=== PATIENT | female | born 1960 | race Caucasian/White ===

== ENCOUNTER 2017-04-24 17:25 | Emergency (ER) | payer OTHER ==
[2017-04-24 17:31] VITALS: TEMP 98.4; BMI 33.2
--- NOTE | 2017-04-24 20:35 | PDOC ---
History of Present Illness - General History Source: Patient Exam Limitations: No Limitations - History of Present Illness Initial Comments: The patient is a 56 yo F with a past medical history significant for COPD, HTN, HLD, cardiac catheterization, intracranial bleeds in the 90s, 3 herniated discs , spinal stenosis, carpal tunnel and ETOH intox (Sep 2016) presents with two days of fatigue. Patient states she was unable to get out of bed yesterday. Patient endorses associated pedal edema and occasional palpitations. Patient denies fever, chills, nausea, vomiting and diarrhea. Patient denies dysuria and hematuria. Patient denies chest pain. Patient notes she began taking Pantoprazole recently and is unsure whether this caused her symptoms. Patient also reports a recent endoscopy that showed an abnormal pH finding. Patient also notes her hoarse voice is chornic. Patient had a negative stress test in 2013. PCP: Dr. Grazyna Sanches Hx: Smoker (former 3 ppd now 1ppd since she was 16 yo), social ETOH use <Shamika Stephens - Last Filed: 04/24/17 21:40> <Kacie Lutz - Last Filed: 04/24/17 23:21> - General Chief Complaint: Weakness Stated Complaint: WEAKNESS Time Seen by Provider: 04/24/17 17:43 Past History <Shamika Stephens - Last Filed: 04/24/17 21:40> - Past Medical History Anemia: No Asthma: Yes (CHRONIC BRONCHITIS/ASTHMA) Cancer: No Cardiac Disorders: Yes (NEG STRESS) CVA: Yes (1998) COPD: Yes CHF: No Dementia: No Diabetes: No GI Disorders: No Disorders: No HTN: Yes Hypercholesterolemia: Yes Liver Disease: No Psychiatric Problems: Yes (ANXIETY) Seizures: No Thyroid Disease: No - Surgical History Abdominal Surgery: Yes Appendectomy: No Cardiac Surgery: Yes (CARD CATH) Cholecystectomy: No Lung Surgery: No Neurologic Surgery: No Orthopedic Surgery: Yes (LEFT CARPAL TUNNEL ) - Immunization History Immunization Up to Date: Yes - Psycho/Social/Smoking Cessation Hx Anxiety: Yes Suicidal Ideation: No Smoking History: Current every day smoker Have you smoked in the past 12 months: Yes Number of Cigarettes Smoked Daily: 10 Information on smoking cessation initiated: Yes 'Breaking Loose' booklet given: 04/24/17 Hx Alcohol Use: No Drug/Substance Use Hx: No Substance Use Type: None <Priyank Lutza Pao - Last Filed: 04/24/17 23:21> - Past Medical History Allergies/Adverse Reactions: Allergies Allergy/AdvReac Type Severity Reaction Status Date / Time Cephalosporins Allergy Severe Hives Verified 04/24/17 18:11 naproxen [From Naprosyn] Allergy Severe FAINTED Verified 04/24/17 18:11 Penicillins Allergy Severe Hives Verified 04/24/17 18:11 Home Medications: Ambulatory Orders Diltiazem Cd [Cardizem Cd] 240 mg PO DAILY 08/23/12 Clonidine HCl [Catapres] 0.2 mg PO BID 10/03/16 Gabapentin [Neurontin -] 300 mg PO TID 10/03/16 Hydrochlorothiazide [Hctz -] 25 mg PO DAILY 10/03/16 Meloxicam [Mobic (Nf) -] 15 mg PO DAILY 10/03/16 Mometasone Furoate [Asmanex 220Mcg -] 2 inh IH DAILY 10/03/16 Montelukast Na [Singulair -] 10 mg PO HS 10/03/16 Paroxetine HCl [Paxil] 40 mg PO DAILY 10/03/16 Tiotropium [place] [Spiriva] 1 inh IH DAILY 10/03/16 Valsartan 320 mg PO DAILY 10/03/16 Atorvastatin Ca [Lipitor] 40 mg PO HS 04/24/17 Fluticasone Prop 0.05% Nasal [Flonase -] 1 spray AU DAILY 04/24/17 Mometasone/Formoterol [Dulera 100 Mcg/5 Mcg Inhaler] 2 inh IH BID 04/24/17 Pantoprazole Sodium [Protonix] 40 PO DAILY 04/24/17 Review of Systems - Review of Systems Able to Perform ROS?: Yes Comments:: CONSTITUTIONAL: +Fatigue Absent: fever, chills, diaphoresis, generalized weakness, loss of appetite HEENT: Absent: rhinorrhea, nasal congestion, throat pain, throat swelling, difficulty swallowing, mouth swelling, ear pain, eye pain, visual Changes CARDIOVASCULAR: +occassional palpitations Absent: chest pain, syncope, irregular heart rate, lightheadedness, peripheral edema RESPIRATORY: Absent: cough, shortness of breath, dyspnea with exertion, orthopnea, wheezing, stridor, hemoptysis GASTROINTESTINAL: Absent: abdominal pain, abdominal distension, nausea, vomiting, diarrhea, constipation, melena, hematochezia GENITOURINARY: Absent: dysuria, frequency, urgency, hesitancy, hematuria, flank pain, genital pain MUSCULOSKELETAL: Absent: myalgia, arthralgia, joint swelling SKIN: Absent: rash, itching, pallor NEUROLOGIC: Absent: headache, focal weakness or paresthesia, dizziness, unsteady gait, seizure, mental status changes, bladder or bowel incontinence PSYCHIATRIC: Absent: anxiety, depression, suicidal or homicidal ideation, hallucinations 04/24/17 21:40 <Shamika Stephens - Last Filed: 04/24/17 21:40> *Physical Exam - Vital Signs Last Vital Signs Temp Pulse Resp BP Pulse Ox 98.4 F 84 20 138/75 94 L 04/24/17 17:27 04/24/17 20:44 04/24/17 20:44 04/24/17 20:44 04/24/17 20:44 - Physical Exam Comments: GENERAL: Well developed, well nourished. Awake and alert. No acute distress. HEENT: laryngitis. Normocephalic, atraumatic. PERRLA, EOMI. No conjunctival pallor. Sclera are non-icteric. Moist mucous membranes. Oropharynx is clear. NECK: Supple. Full ROM. No JVD. Carotid pulses 2+ and symmetric, without bruits. No thyromegaly. No lymphadenopathy. CARDIOVASCULAR: Regular rate and rhythm. No murmurs, rubs, or gallops. Distal pulses are 2+ and symmetric. PULMONARY: No evidence of respiratory distress. Lungs clear to auscultation bilaterally. No wheezing, rales or rhonchi. ABDOMINAL: Obese. Soft. Non-tender. Non-distended. No rebound or guarding. No organomegaly. Normoactive bowel sounds. MUSCULOSKELETAL Normal range of motion at all joints. No bony deformities or tenderness. No CVA tenderness. EXTREMITIES: No cyanosis. No clubbing. No edema. No calf tenderness. SKIN: Warm and dry. Normal capillary refill. No rashes. No jaundice. NEUROLOGICAL: No gross focal neurological deficits. PSYCHIATRIC: Cooperative. Good eye contact. Appropriate mood and affect <Shamika Stephens - Last Filed: 04/24/17 21:40> - Vital Signs Last Vital Signs Temp Pulse Resp BP Pulse Ox 98.4 F 100 H 18 120/80 94 L 04/24/17 17:27 04/24/17 17:27 04/24/17 17:27 04/24/17 17:27 04/24/17 17:27 <BolivarKacie Pao - Last Filed: 04/24/17 23:21> Heart Score/ECG Review - [place] Comment: ECG: NSR @ 85 bpm. Possible left atrial enlargement. Rightward axis. Borderline ECG. <KevinodalysezShamika - Last Filed: 04/24/17 21:40> ED Treatment Course - LABORATORY CBC & Chemistry Diagram: 04/24/17 20:30 04/24/17 20:30 - ADDITIONAL ORDERS Additional order review: Laboratory Results 04/24/17 20:30 INR 1.02 04/24/17 20:30 RBC 3.93 MCV 94.0 MCHC 33.0 RDW 13.4 MPV 10.9 D Neutrophils % 67.2 Lymphocytes % 26.5 Monocytes % 4.0 Eosinophils % 1.4 Basophils % 0.9 <KevinodalysezShamika - Last Filed: 04/24/17 21:40> - LABORATORY CBC & Chemistry Diagram: 04/24/17 20:30 04/24/17 20:30 - RADIOLOGY Radiology Studies Ordered: Category Date Time Status HEAD CT WITHOUT CONTRAST [CT] Stat CT Scan 04/24/17 20:25 Ordered CHEST X-RAY PORTABLE* [RAD] Stat Radiology 04/24/17 20:24 Ordered <BolivarKacie Pao - Last Filed: 04/24/17 23:21> Medical Decision Making - Medical Decision Making 04/24/17 22:29 56-year-old female presented because of complaint of several days of malaise, increased fatigue -Does not have chest pain, abdominal pain, shortness of breath, fever, chills, nausea, vomiting She does admit to a chronic cough. She's been smoking cigarettes since the age of 16 between 1 and 3 packs per day She is being followed by ear, nose and throat for her chronic cough. She has had a recent scope done by her ENT She does not have a fever. EKG is normal sinus rhythm and no acute signs of ischemia She does not have a leukocytosis. She is not anemic Cardiac enzymes are negative Liver function to her electrolytes are normal -only abnormality was bun/cr 35/1.3 slightly increased and she received IVF and was discharged home <Kacie Lutz - Last Filed: 04/24/17 23:21> *DC/Admit/Observation/Transfer - Attestations Scribe Attestion: Documentation prepared by Shamika Stephens, acting as manager medical affairs for Kacie Lutz MD/DO. <Shamika Stephens - Last Filed: 04/24/17 21:40> <Kacie Lutz - Last Filed: 04/24/17 23:21> Diagnosis at time of Disposition: Malaise and fatigue, Chronic cough - Discharge Dispostion Disposition: HOME Condition at time of disposition: Stable - Referrals Referrals: Mao Wise MD [Primary Care Provider] - - Patient Instructions Printed Discharge Instructions: DI for Fatigue, DI for Laryngitis Additional Instructions: PLEASE FOLLOW UP WITH YOUR PRIMARY PHYSICIAN AND ENT SPECIALIST
[2017-04-24 20:45] VITALS: BP 138/75; PULSE 84
[2017-04-24 20:49] LABS: BASOPHIL 0.9 % (0-2.0); EOSINOPHIL 1.4 % (0-4.5); MEAN PLT VOLUME 10.9 fl (7.5-11.1); NEUTROPHILS 67.2 % (42.8-82.8); PLATELET COUNT 177 K/MM3 (134-434); RDW 13.4 % (11.6-15.6); WHITE BLOOD COUNT 9.3 K/mm3 (4.0-10.0)
[2017-04-24 21:03] LABS: INR 1.02 (0.82-1.09); PROTHROMBIN TIME (PATIENT) 11.2 SEC (9.98-11.88)
[2017-04-24 21:05] LABS: URINE APPEARANCE CLEAR; URINE BILIRUBIN NEGATIVE (NEGATIVE); URINE BLOOD NEGATIVE (NEGATIVE); URINE COLOR LTYELLOW; URINE GLUCOSE (UA) NEGATIVE (NEGATIVE); URINE KETONE NEGATIVE (NEGATIVE); URINE LEUK ESTERASE NEGATIVE (NEGATIVE); URINE NITRITE NEGATIVE (NEGATIVE); URINE PROTEIN NEGATIVE (NEGATIVE); URINE UROBILINOGEN NEGATIVE E.U./dl (0.2-1.0)
[2017-04-24 21:14] LABS: ALBUMIN 3.3 g/dl (3.4-5.0); ANION GAP 10 (8-16); CO2 26 mmol/L (21-32); CREATININE 1.3 mg/dL (0.55-1.02); GLUCOSE,RANDOM 142 mg/dL (74-106); SGPT/ALT 19 U/L (12-78)
[2017-04-24 21:19] LABS: ALK PHOS 169 U/L (45-117); BILIRUBIN,TOTAL 0.3 mg/dL (0.2-1.0); TOT PROT 6.6 g/dl (6.4-8.2); TROPONIN I < 0.02 ng/ml (0.00-0.05)
[2017-04-24 21:33] LABS: SGOT/AST 20 U/L (15-37)
[2017-04-24] MEDS ORDERED: SODIUM CHLORIDE 1,000 ML IV STA (21:38)
--- NOTE | 2017-04-26 11:22 | EKG ---
Test Reason : Blood Pressure : / mmHG Vent. Rate : 085 BPM Atrial Rate : 085 BPM P-R Int : 180 ms QRS Dur : 092 ms QT Int : 350 ms P-R-T Axes : 051 103 020 degrees QTc Int : 416 ms NORMAL SINUS RHYTHM POSSIBLE LEFT ATRIAL ENLARGEMENT RIGHTWARD AXIS BORDERLINE ECG WHEN COMPARED WITH ECG OF 03-OCT-2016 22:14, NONSPECIFIC T WAVE ABNORMALITY NO LONGER EVIDENT IN LATERAL LEADS Confirmed by VIRGEN BENSON, DENYS ([id number]) on 04/26/2017 11:22:35 AM Referred By: Confirmed By:DENYS NEW MD
== END 2017-04-24 23:35 | disposition home or self-care (01) ==
LOC: JER 17:25
PROC: 3E0337Z Introduction of Electrolytic and Water Balance Substance into Peripheral Vein, Percutaneous Approach (ICD-10-PCS; principal; 2017-04-24)
DX: R53.81 Other malaise (principal); R05 Cough; I25.10 Atherosclerotic heart disease of native coronary artery without angina pectoris; Z98.61 Coronary angioplasty status; I10 Essential (primary) hypertension; J44.9 Chronic obstructive pulmonary disease, unspecified; E78.00 Pure hypercholesterolemia, unspecified
CPT/HCPCS: 36415; 70450-TC; 71010-TC; 80053; 81003; 82550; 84484; 85025; 85610; 93005; 93010; 99284-25

== ENCOUNTER → 2017-05-31 | Emergency (ER) | payer OTHER ==
[~2017-05-31] MED LIST: AMIODARONE HCL 150 MG/3 ML VIAL ONE
--- NOTE | 2017-05-31 05:32 | PDOC ---
History of Present Illness - General History Source: EMS <Swapnil Echeverria - Last Filed: 05/31/17 05:52> - General History Source: Patient Exam Limitations: No Limitations - History of Present Illness Initial Comments: 05/31/17 05:56 The patient is a 56 year old female who presents to the ED s/p cardiac arrest. As per EMS the patient had been complaining of SOB for 1 day. As per EMS the boyfriend called the ambulance due to respiratory distress and after the patient collapsed, while the patient was being transported, she coded and was intubated in the field. As per EMS 1 round of epinephrine, 1 round of amiodarone , 1 round of calcium and 1 round of bicarb administered en route. Patient did not regain spontaneous vital signs and was transported to the hospital. Patient had 1 shockable rhythm in the field. As per EMS active CPR was being done for 20 minutes. At presentation in the ED active CPR was in progress. Patient was given 1 round of epinephrine and finger stick was done resulting in 228 mg/dL. Patient did not regain spontaneous vital signs confirmed by bedside sonogram. PMH: COPD, HTN, HLD, anxiety, asthma, cardiac catheterization, intracranial bleeds in the 90s, 3 herniated discs, spinal stenosis, carpal tunnel and ETOH abuse (Sep 2016) <Daisy Larry - Last Filed: 05/31/17 06:00> - General Stated Complaint: CARDIAC ARREST Time Seen by Provider: 05/31/17 05:32 Past History - Past Medical History Anemia: No Asthma: Yes (CHRONIC BRONCHITIS/ASTHMA) Cancer: No Cardiac Disorders: Yes (NEG STRESS) CVA: Yes (1998) COPD: Yes CHF: No Dementia: No Diabetes: No GI Disorders: No Disorders: No HTN: Yes Hypercholesterolemia: Yes Liver Disease: No Psychiatric Problems: Yes (ANXIETY) Seizures: No Thyroid Disease: No - Surgical History Abdominal Surgery: Yes Appendectomy: No Cardiac Surgery: Yes (CARD CATH) Cholecystectomy: No Lung Surgery: No Neurologic Surgery: No Orthopedic Surgery: Yes (LEFT CARPAL TUNNEL ) - Immunization History Immunization Up to Date: Yes - Psycho/Social/Smoking Cessation Hx Anxiety: Yes Suicidal Ideation: No Smoking History: Current every day smoker Have you smoked in the past 12 months: Yes Number of Cigarettes Smoked Daily: 10 'Breaking Loose' booklet given: 04/24/17 Hx Alcohol Use: No Drug/Substance Use Hx: No Substance Use Type: None <Swapnil Echeverria - Last Filed: 05/31/17 05:52> <Daisy Larry - Last Filed: 05/31/17 06:00> - Past Medical History Allergies/Adverse Reactions: Allergies Allergy/AdvReac Type Severity Reaction Status Date / Time Cephalosporins Allergy Severe Hives Verified 05/31/17 05:35 naproxen [From Naprosyn] Allergy Severe FAINTED Verified 05/31/17 05:35 Penicillins Allergy Severe Hives Verified 05/31/17 05:35 Home Medications: Ambulatory Orders Diltiazem Cd [Cardizem Cd] 240 mg PO DAILY 08/23/12 Clonidine HCl [Catapres] 0.2 mg PO BID 10/03/16 Gabapentin [Neurontin -] 300 mg PO TID 10/03/16 Hydrochlorothiazide [Hctz -] 25 mg PO DAILY 10/03/16 Meloxicam [Mobic (Nf) -] 15 mg PO DAILY 10/03/16 Mometasone Furoate [Asmanex 220Mcg -] 2 inh IH DAILY 10/03/16 Montelukast Na [Singulair -] 10 mg PO HS 10/03/16 Paroxetine HCl [Paxil] 40 mg PO DAILY 10/03/16 Tiotropium [place] [Spiriva] 1 inh IH DAILY 10/03/16 Valsartan 320 mg PO DAILY 10/03/16 Atorvastatin Ca [Lipitor] 40 mg PO HS 04/24/17 Fluticasone Prop 0.05% Nasal [Flonase -] 1 spray AU DAILY 04/24/17 Mometasone/Formoterol [Dulera 100 Mcg/5 Mcg Inhaler] 2 inh IH BID 04/24/17 Pantoprazole Sodium [Protonix] 40 PO DAILY 04/24/17 Review of Systems - Review of Systems Able to Perform ROS?: No (Unresponsive) <Daisy Larry - Last Filed: 05/31/17 06:00> *Physical Exam - Physical Exam Comments: 05/31/17 05:57 GENERAL: (+)Unresponsive, intubated HEENT: (+)No obvious signs of obvious head trauma, pupils fixed and dilated CARDIOVASCULAR: (+)No spontaneous heart sounds PULMONARY: (+)Patient intubated and bagged by BVM no spontaneous breath sounds ABDOMINAL: (+)soft, obese, slightly distended EXTREMITIES: (+)No obvious deformity, Right IO located in tib fib region NEUROLOGICAL: (+) no spontaneous movement <Daisy Larry - Last Filed: 05/31/17 06:00> Medical Decision Making - Medical Decision Making 05/31/17 05:40 Patient did not regain spontaneous vital signs here in the department. SonoSite used to observe any cardiac rhythm. None was visualized. Patient's pronounced by me at 5:27 AM. Pt boyfriend Eric Pruitt present and informed of patient's expiration. 05/31/17 05:41 home office claims examiner of [place] called accepted case #[id number] <Swapnil Echeverria - Last Filed: 05/31/17 05:52> *DC/Admit/Observation/Transfer - Discharge Dispostion Admit: No <Swapnil Echeverria - Last Filed: 05/31/17 05:52> - Attestations Scribe Attestion: 05/31/17 06:00 Documentation prepared by SIMONE Paul, acting as medical assisting instructor for Swapnil Echeverria DO. <Daisy Larry - Last Filed: 05/31/17 06:00> Diagnosis at time of Disposition: Cardiac arrest - Discharge Dispostion Disposition: Condition at time of disposition: - Patient Instructions Printed Discharge Instructions: Cardiac Arrest
[2017-05-31 06:23] VITALS: BP 00/00; PULSE 0; BMI 39.0
== END | disposition expired ==
LOC: JER 05:25
PROC: 5A12012 Performance of Cardiac Output, Single, Manual (ICD-10-PCS; principal; 2017-05-31)
DX: I46.9 Cardiac arrest, cause unspecified (principal); I10 Essential (primary) hypertension; E78.5 Hyperlipidemia, unspecified; J45.909 Unspecified asthma, uncomplicated; J44.9 Chronic obstructive pulmonary disease, unspecified; F41.9 Anxiety disorder, unspecified; F17.210 Nicotine dependence, cigarettes, uncomplicated; Z98.61 Coronary angioplasty status; Z88.0 Allergy status to penicillin; Z86.73 Personal history of transient ischemic attack (TIA), and cerebral infarction without residual deficits
CPT/HCPCS: 99285-25